=== PATIENT | female | born 1950 | race Caucasian/White ===

== ENCOUNTER 2017-06-11 17:04 | Emergency (ER) | payer SELFPAY ==
--- NOTE | 2017-06-11 17:44 | RAD ---
INDICATION: Dizziness COMPARISON: August 11, 2005 TECHNIQUE: PA and lateral dual-energy views were obtained. FINDINGS: Bones/Soft Tissues: There are no acute bony findings. Cardiomediastinal: The cardiomediastinal silhouette is normal. Lungs: There is a tiny (8mm) nodular focus in the right midlung field projected between the right seventh and eighth ribs but not identified on the lateral view. This was not definitively identified previously. Lungs otherwise clear. Pleura: There are no pleural effusions. Other: None IMPRESSION: LOW SUSPICION NODULARITY RIGHT MIDLUNG FIELD. SUGGEST NONEMERGENT CT IMAGING FOLLOW-UP.
[2017-06-11 17:59] LABS: ABS Basophils 0.1 10^3/ul (0-0.2); ABS Eosinophils 0.4 10^3/ul (0-0.6); ABS Lymphocytes 1.6 10^3/ul (1.0-4.8); ABS Monocytes 0.9 10^3/ul (0-0.8); ABS Neutrophils 3.8 10^3/ul (1.5-7.7); ABS Nucleated RBC 0 10^3/ul; Eosinophil % 5.8 % (0-6); Hematocrit 45 % (35-47); Hemoglobin 15.2 g/dl (12.0-16.0); Lymphocyte % 24.1 % (25-47); Mean Corpuscular HGB Conc 34 g/dl (31-36); Mean Corpuscular Hemoglobin 29 pg (27-31); Mean Corpuscular Volume 86 fL (80-97); Mean Platelet Volume 7.3 um3 (7.4-10.4); Nucleated Red Blood Cells % 0.1; Platelet Count 329 10^3/ul (150-450); Red Blood Count 5.28 10^6/ul (4.0-5.4); Red Cell Distribution Width 14 % (10.5-15); White Blood Count 6.7 10^3/ul (3.5-10.8)
--- NOTE | 2017-06-11 18:04 | RAD ---
INDICATION: Dizziness COMPARISON: None TECHNIQUE: Noncontrast axial source images were acquired from the skull base to the vertex. FINDINGS: Ventricles/sulci: The ventricles and cisterns are normal in size and configuration for age. Brain parenchyma: There is no focal parenchymal finding, evidence of intracranial mass, or intracranial mass effect. Intracranial hemorrhage:None. Extra-axial spaces: There are no abnormal extra axial fluid collections or evidence of extra-axial mass. Calvarium: There is no calvarial fracture or other calvarial abnormality. Scalp: There is no evidence of scalp or extracalvarial soft tissue abnormality. Paranasal sinuses/mastoid: The paranasal sinuses and mastoid air cells are clear. Other: None. IMPRESSION: NEGATIVE EXAMINATION
[2017-06-11 18:18] LABS: EGFR Non-African American 92.8 (>60)
[2017-06-11 19:05] VITALS: BP 0/0
--- NOTE | 2017-06-14 07:49 | ED ---
Germain Swann Angela, scribed for Krzysztof Blanco MD on 06/11/17 at 1730 . Dizziness - HPI Summary HPI Summary: This pt is a 67 y/o female presenting [place] [facility] [place]/o dizziness x2 days. Pt reports she got up on the side of her bed and had sudden onset of dizziness. She had to immediately lay down on her bed again. She describes dizziness as room spinning. Pt notes that she went to work and when she returned home to take a nap, she had another episode of room spinning. Pt states she is able to get her dizziness "under control psychologically." Last night when she went to take her nap, she was not able to lay flat on her bed. She reports she had to prop herself to sleep. This morning upon laying down on her bed she had no problems but when she got up she had slight lightheadedness and nausea. Pt states she is able to eat but is still hungry. Denies chest pain, palpitations, headache, diplopia, abd pain, diarrhea. Pt took her blood pressure 140/92, which she states is normal for her. PMHx includes bacterial pneumonia. She notes she has "an ongoing problem" of thick sputum. - History Of Current Complaint Chief Complaint: EDDizziness Stated Complaint: DIZZINESS/NAUSEA Time Seen by Provider: 06/11/17 17:18 Hx Obtained From: Patient Onset/Duration: Resolved Timing: Intermittent Episode Lasting - minutes Severity Currently: Moderate Character: Room Spinning Aggravating Factor(s): Nothing Alleviating Factor(s): Other - pt states she is able to get it under control. Associated Signs And Symptoms: Positive: Nausea, Other: - NEG: diplopia, diarrhea. Negative: Diarrhea, Chest Pain, Palpitations, Visual Changes, Fever - Allergies/Home Medications Allergies/Adverse Reactions: Allergies Allergy/AdvReac Type Severity Reaction Status Date / Time No Known Allergies Allergy Verified 06/11/17 17:15 PMH/Surg Hx/FS Hx/Imm Hx Endocrine/Hematology History: Denies: Hx Diabetes Cardiovascular History: Denies: Hx Hypertension Infectious Disease History: No Infectious Disease History: Denies: Traveled Outside the [place] in Last 30 Days - Family History Known Family History: Negative: Cardiac Disease - Social History Alcohol Use: None Substance Use Type: Reports: None Smoking Status (MU): Never Smoked Tobacco Review of Systems Negative: Fever Negative: Diplopia Negative: Palpitations, Chest Pain Positive: Nausea. Negative: Abdominal Pain, Diarrhea Neurological: Other - POS: dizziness Negative: Headache All Other Systems Reviewed And Are Negative: Yes Physical Exam - Summary Physical Exam Summary: VITAL SIGNS: Reviewed. GENERAL: Patient is a well-developed and nourished female who is lying comfortable in the stretcher. Patient is not in any acute respiratory distress. HEAD AND FACE: No signs of trauma. No ecchymosis, hematomas or skull depressions. No sinus tenderness. EYES: PERRLA, EOMI x 2, No injected conjunctiva, no nystagmus. EARS: Hearing grossly intact. Ear canals and tympanic membranes are within normal limits. MOUTH: Oropharynx within normal limits. NECK: Supple, trachea is midline, no adenopathy, no JVD, no carotid bruit, no c- spine tenderness, neck with full ROM. CHEST: Symmetric, no tenderness at palpation LUNGS: Clear to auscultation bilaterally. No wheezing or crackles. CVS: Regular rate and rhythm, S1 and S2 present, no murmurs or gallops appreciated. ABDOMEN: Soft, non-tender. No signs of distention. No rebound no guarding, and no masses palpated. Bowel sounds are normal. EXTREMITIES: FROM in all major joints, no edema, no cyanosis or clubbing. NEURO: Alert and oriented x 3. No acute neurological deficits. Speech is normal and follows commands. SKIN: Dry and warm GCS: 15 Triage Information Reviewed: Yes Vital Signs On Initial Exam: Initial Vitals Temp Pulse Resp BP Pulse Ox 96.5 F 81 17 161/99 96 06/11/17 17:12 06/11/17 17:12 06/11/17 17:12 06/11/17 17:12 06/11/17 17:12 Vital Signs Reviewed: Yes - Janey Coma Scale Best Eye Response: 4 - Spontaneous Best Motor Response: 6 - Obeys Commands Best Verbal Response: 5 - Oriented Coma Scale Total: 15 Diagnostics - Vital Signs Vital Signs Temp Pulse Resp BP Pulse Ox 06/11/17 17:12 96.5 F 81 17 161/99 96 - Laboratory Result Diagrams: 06/11/17 17:40 06/11/17 17:40 Lab Statement: Any lab studies that have been ordered have been reviewed, and results considered in the medical decision making process. - Radiology Chest XR Xray Interpretation: Positive (See Comments) - IMPRESSION: low suspicion nodularity right midlung field. Suggest nonemergent CT imaging follow-up. Dr. Blanco has reviewed this radiology report. Radiology Interpretation Completed By: Radiologist - CT Brain CT CT Interpretation: No Acute Changes - IMPRESSION: Negative examination. Dr. Blanco has reviewed this radiology report. CT Interpretation Completed By: Radiologist - EKG 17:44 Cardiac Rate: NL EKG Rhythm: Sinus Rhythm - at 71 bpm EKG Interpretation: No ST elevations. Re-Evaluation - Re-Evaluation First Eval Re-Evaluation Time: 18:26 Comment: I reviewed the lab, XR, and CT results with the pt. She will be discharged home. Pt declines Antivert. Dizzy Course/Dx - Course Assessment/Plan: This pt is a 67 y/o female presenting to [facility] c/o dizziness x2 days. Pt reports she got up on the side of her bed and had sudden onset of dizziness. She had to immediately lay down on her bed again. She describes dizziness as room spinning. Pt notes that she went to work and when she returned home to take a nap, she had another episode of room spinning. Pt states she is able to get her dizziness "under control psychologically." Last night when she went to take her nap, she was not able to lay flat on her bed. She reports she had to prop herself to sleep. This morning upon laying down on her bed she had no problems but when she got up she had slight lightheadedness and nausea. Pt states she is able to eat but is still hungry. Denies chest pain , palpitations, headache, diplopia, abd pain, diarrhea. Test results without any significant abnormalities except for glucose of 116. Chest XR: low suspicion nodularity right midlung field. Suggest nonemergent CT imaging follow- up. Brain CT: negative examination. In the ED course, the pt denies any Antivert and antiemetics. Therefore she will be discharged to home with follow up from her PCP. I discussed all the findings and test results with the patient. All questions were answered to patient satisfaction. There were no further complaints or concerns. At discharge pt declined antivert prescription. She is instructed to return to the ED for any worsening or new symptoms. Pt is hemodynamically stable, alert and oriented x3. - Diagnoses Provider Diagnoses: Vertigo Discharge - Sign-Out/Discharge Documenting (check all that apply): Discharge - discharge to home - Discharge Plan Condition: Stable Disposition: HOME Patient Education Materials: Vertigo (ED) Referrals: [facility] [place]Outside] - 3 Days Additional Instructions: Please follow up with your primary care provider. RETURN TO THE ED FOR ANY NEW OR WORSENING SYMPTOMS. The documentation as recorded by the Germain iraheta Angela accurately reflects the service I personally performed and the decisions made by me, Krzysztof Blanco MD.
== END 2017-06-11 19:03 | disposition home or self-care (01) ==
LOC: ED 17:04
DX: R42 Dizziness and giddiness (principal); R11.0 Nausea; R53.1 Weakness
CPT/HCPCS: 36415; 70450; 71046; 80053; 83735; 84443; 84484; 85025; 86140; 93005; 99282

== ENCOUNTER 2018-10-21 14:27 | Emergency (ER) | payer OTHER ==
[2018-10-21 14:44] VITALS: BP 139/102
--- NOTE | 2018-10-21 15:00 | UC ---
Lower Extremity/Ankle HPI - HPI Summary HPI Summary: 68-year-old woman comes in with a chief complaint of right leg pain and swelling after injury. 6 days ago patient twisted her right knee when she fell. She did strike her right dinero. She had swelling in the right knee she reports she blew it out. The swelling has gone down in the right knee but she has continued to have pain and swelling in the anterior dinero and also the calf. Is also ecchymosis that become dependent gone down into her right ankle. No weakness or numbness no other injuries she has been able to walk on the walking makes the pain worse. Resting decreases the pain. - History of Current Complaint Chief Complaint: UCLowerExtremity Stated Complaint: LEG INJURY Time Seen by Provider: 10/21/18 14:47 Pain Intensity: 6 - Allergies/Home Medications Allergies/Adverse Reactions: Allergies Allergy/AdvReac Type Severity Reaction Status Date / Time No Known Allergies Allergy Verified 10/21/18 14:44 Home Medications: Home Medications Acetaminophen [Tylophen] 1,000 mg PO ONCE PRN 10/21/18 [History Confirmed ] Chromium Picolinate 1 tab PO DAILY 10/21/18 [History Confirmed 10/21/18] PMH/Surg Hx/FS Hx/Imm Hx Previously Healthy: Yes - Surgical History Surgical History: Yes Surgery Procedure, Year, and Place: T&A - Family History Known Family History: Negative: Cardiac Disease - Social History Alcohol Use: Daily Substance Use Type: None Smoking Status (MU): Never Smoked Tobacco Review of Systems All Other Systems Reviewed And Are Negative: Yes Constitutional: Positive: Negative Skin: Positive: Bruising Eyes: Positive: Negative ENT: Positive: Negative Respiratory: Positive: Negative Cardiovascular: Positive: Negative Gastrointestinal: Positive: Negative Motor: Positive: Negative Neurovascular: Positive: Negative Musculoskeletal: Positive: Other: - see hpi Neurological: Positive: Negative Psychological: Positive: Negative Is Patient Immunocompromised?: No Physical Exam Triage Information Reviewed: Yes Appearance: Well-Appearing, No Pain Distress, Well-Nourished Vital Signs: Initial Vital Signs Temp 97.3 F 10/21/18 14:37 Pulse 86 10/21/18 14:37 Resp 18 10/21/18 14:37 BP 139/102 10/21/18 14:37 Pulse Ox 99 10/21/18 14:37 Vital Signs Reviewed: Yes Eye Exam: Normal Eyes: Positive: Conjunctiva Clear Neck: Positive: Supple Respiratory: Positive: No respiratory distress Musculoskeletal: Positive: Strength Intact, ROM Intact, Other: - Right knee does have an effusion. Tender to palpation on the medial aspect and posterior aspect. Patella is nontender. Stable to exam. Negative Sunitha's. Anterior dinero has ecchymosis tender to exam mid shaft. There is swelling in the calf and the patient's tender in the calf. Ankle has ecchymosis and some swelling. Ankle has full range of motion and is nontender to palpation. There is dependent ecchymosis down into the heel of the right foot. Normal dorsalis pedis pulse normal capillary refill no sensation deficit. Neurological: Positive: Alert Psychological: Positive: Age Appropriate Behavior Skin: Positive: Other - Ecchymosis around the right ankle and the right dinero. Lower Extremity Course/Dx - Course Course Of Treatment: Patient Name: DANDY VANG Medical Record#: [id number] Ordering Physician: Ivan Loza MD Acct.#: [id number] : 1950 Age: 68 Sex: F Location: [facility] Exam Date: 10/21/18 1453 ADM Status: REG ER Order Information: TIBIA FIBULA RIGHT Accession Number: [id number] CPT: 06148 HISTORY: pain/swelling s/p injury . COMPARISONS: None relevant available at the time of dictation. VIEWS: 6, Frontal, lateral, axial, and oblique views of the right knee with frontal and lateral views of the right foreleg FINDINGS: BONE DENSITY: Normal. BONES: There is a bone fragment within the femoral intercondylar fossa measuring 1.6 cm. There is a potential donor site from the medial aspect of the lateral femoral condyle. 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 There is a large suprapatellar joint effusion. 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 ALIGNMENT: There is no dislocation. SOFT TISSUES: Unremarkable. OTHER FINDINGS: None. IMPRESSION: BONE FRAGMENT WITHIN THE JOINT SPACE OF THE RIGHT KNEE, MOST CONSISTENT WITH AN AVULSION FRACTURE, WITH POTENTIAL DONOR SITE FROM THE LATERAL FEMORAL CONDYLE <Electronically signed by Juancho Gann MD in OV> 10/21/181518 Patient Name: DANDY VANG Medical Record#: [id number] Ordering Physician: Ivan Loza MD Acct.#: [id number] : 1950 Age: 68 Sex: F Location: [facility] Exam Date: 10/21/181452 ADM Status: REG ER Order Information: KNEE RIGHT 4+ VWS Accession Number: [id number] CPT: 20718 HISTORY: pain/swelling s/p injury . COMPARISONS: None relevant available at the time of dictation. VIEWS: 6, Frontal, lateral, axial, and oblique views of the right knee with frontal and lateral views of the right foreleg FINDINGS: BONE DENSITY: Normal. BONES: There is a bone fragment within the femoral intercondylar fossa measuring 1.6 cm. There is a potential donor site from the medial aspect of the lateral femoral condyle. 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 There is a large suprapatellar joint effusion. 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 ALIGNMENT: There is no dislocation. SOFT TISSUES: Unremarkable. OTHER FINDINGS: None. IMPRESSION: BONE FRAGMENT WITHIN THE JOINT SPACE OF THE RIGHT KNEE, MOST CONSISTENT WITH AN AVULSION FRACTURE, WITH POTENTIAL DONOR SITE FROM THE LATERAL FEMORAL CONDYLE <Electronically signed by Juancho Gann MD in OV> 10/21/181518 Patient Name: DANDY VANG Medical Record#: [id number] Ordering Physician: Ivan Loza MD Acct.#: [id number] : 1950 Age: 68 Sex: F Location: [facility] Exam Date: 10/21/181452 ADM Status: REG ER Order Information: VL LOWER EXT VEINS RIGHT Accession Number: [id number] CPT: 27813 Indication: Right leg bruising and swelling.. Duplex Doppler sonography of the deep venous system of the right lower extremity deep venous system was performed. Bilaterally the common femoral veins appear patent and compressible. Right proximal greater saphenous vein, proximal deep femoral vein, femoral vein, popliteal vein , posterior tibial veins and peroneal veins appear patent and compressible. IMPRESSION: NO EVIDENCE OF DEEP VENOUS THROMBOSIS IS IDENTIFIED. <Electronically signed by Heaven Eli MD in OV> 10/21/18 8983 And discussed the x-rays and ultrasound with the patient. Is an evulsion fracture inside the knee joint. Patient reports she was using a brace and a cane initially but she's not using those anymore. I recommended more support for the knee to include the possibility of Mauricio wrap knee brace or knee immobilizer along with walking support such as crutches or cane been patient declined all of those. The plan is to follow-up with orthopedics. If she gets worse she needs to get seen again right away. - Differential Dx/Diagnosis Provider Diagnosis: Avulsion injury of right knee region, Contusion of lower leg, right, Pain of right calf Discharge - Sign-Out/Discharge Documenting (check all that apply): Patient Departure All imaging exams completed and their final reports reviewed: Yes - Discharge Plan Condition: Stable Disposition: HOME Patient Education Materials: Avulsion Fracture (ED), Swollen Knee Joint (ED), Contusion in Adults (ED) Referrals: Danial Perez MD [Medical Doctor] - Additional Instructions: FOLLOW UP WITH DR PEREZ, ORTHOPEDICS. GET RECHECKED SOONER IF YOUR CONDITION WORSENS; CALF PAIN, SWELLING, CHEST PAIN , SHORTNESS OF BREATH OR ANY QUESTIONS OR CONCERNS. - Billing Disposition and Condition Condition: STABLE Disposition: Home
== END 2018-10-21 16:55 | disposition home or self-care (01) ==
LOC: UCEAST 14:27
DX: S80.11XA Contusion of right lower leg, initial encounter (principal); W18.30XA Fall on same level, unspecified, initial encounter; Y92.9 Unspecified place or not applicable
CPT/HCPCS: 99211; G0463